=== PATIENT | female | born 1975 | race Caucasian/White ===

== ENCOUNTER 2021-12-22 15:17 | Outpatient (REF) | payer OTHER, SELFPAY ==
[2021-12-24 13:46] LABS: Chlamydia Result Negative (Negative); GC Result Negative (Negative)
== END 2021-12-22 15:18 | disposition home or self-care (01) ==
LOC: LBN 15:17
PROVIDERS: Visit Provider Physician Assistant Medical
DX: R30.9 Painful micturition, unspecified (principal); R82.79 Other abnormal findings on microbiological examination of urine
CPT/HCPCS: 87491; 87591; 86695; 86696; 87086; 87480; 87510; 87660